=== PATIENT | male | born 1970 | race Caucasian/White ===

== ENCOUNTER 2016-09-12 21:21 | Emergency (ER) | payer SELFPAY ==
--- NOTE | 2016-09-12 22:37 | Emergency Department Report ---
ED Extremity Problem HPI - General Chief complaint: Extremity Injury, Upper Stated complaint: LT HAND SWELLING POSS SPIDER BITE Time Seen by Provider: 09/12/16 22:26 Source: patient Mode of arrival: Ambulatory Limitations: No Limitations - History of Present Illness Initial comments: PT states he was outside yesterday and he was stung by a cardona bee. PT states the bee stung his left index finger. PT states he looked but did not see stinger. PT reports L hand swelling and mild pain. PT States a few days ago, he did scrape his hand but states that has healed. PT states his TD vaccine is UTD. MD Complaint: extremity swelling -: Sudden, days(s) Location: left, upper extremity (hand) History of Same: No Quality: other (pt states it is "a little pain") Consistency: constant Improves with: nothing Worsens with: nothing Associated Symptoms: rash. denies: shortness of breath, fever, myalgias - Related Data Previous Rx's Medication Instructions Recorded Last Taken Type Cephalexin [Keflex] 500 mg PO Q6HR #28 capsule 09/12/16 Unknown Rx Ibuprofen [Motrin] 600 mg PO Q8H PRN #15 tablet 09/12/16 Unknown Rx methylPREDNISolone [Medrol] 4 mg PO DAILY #1 tab.ds.pk 09/12/16 Unknown Rx Allergies Allergy/AdvReac Type Severity Reaction Status Date / Time No Known Allergies Allergy Unverified 09/12/16 21:45 ED Review of Systems ROS: Stated complaint: LT HAND SWELLING POSS SPIDER BITE Other details as noted in HPI Comment: All other systems reviewed and negative Constitutional: denies: chills, fever, malaise ENT: throat pain Respiratory: denies: cough, shortness of breath, SOB with exertion, SOB at rest Gastrointestinal: denies: abdominal pain, nausea, vomiting Musculoskeletal: as per HPI Skin: rash, change in color (erythema ) ED Past Medical Hx - Past Medical History Previous Medical History?: No - Social History Smoking Status: Never Smoker Substance Use Type: None - Medications Home Medications: Home Medications Medication Instructions Recorded Confirmed Last Taken Type Cephalexin [Keflex] 500 mg PO Q6HR #28 capsule 09/12/16 Unknown Rx Ibuprofen [Motrin] 600 mg PO Q8H PRN #15 tablet 09/12/16 Unknown Rx methylPREDNISolone [Medrol] 4 mg PO DAILY #1 tab.ds.pk 09/12/16 Unknown Rx ED Physical Exam - General Limitations: No Limitations General appearance: alert, in no apparent distress - Head Head exam: Present: atraumatic, normocephalic, normal inspection - Eye Eye exam: Present: normal appearance. Absent: conjunctival injection - ENT ENT exam: Present: normal exam, normal orophraynx, normal external ear exam - Neck Neck exam: Present: normal inspection, full ROM - Respiratory Respiratory exam: Present: normal lung sounds bilaterally. Absent: respiratory distress, chest wall tenderness - Cardiovascular Cardiovascular Exam: Present: regular rate, normal rhythm - Extremities Exam Extremities exam: Present: full ROM, normal capillary refill. Absent: tenderness - Expanded Upper Extremity Exam Left Shoulder Exam: Present: normal inspection, full ROM. Absent: tenderness Upper Arm exam: Present: erythema Elbow exam: Present: full ROM, erythema. Absent: tenderness, swelling Forearm Wrist exam: Present: swelling, erythema Hand Wrist exam: Present: full ROM, swelling, erythema, other (pt has linear scab to L hand- pt states that is from 4 days ago. no puncture wound or fb at site of insect bite). Absent: tenderness Vascular: Present: normal capillary refill. Absent: vascular compromise - Back Exam Back exam: Present: normal inspection, full ROM. Absent: tenderness, CVA tenderness (R), CVA tenderness (L) - Neurological Exam Neurological exam: Present: alert, oriented X3, normal gait - Psychiatric Psychiatric exam: Present: normal affect, normal mood - Skin Skin exam: Present: warm, dry, intact, erythema (from L hand to upper arm ). Absent: normal color ED Course Vital Signs 09/12/16 09/12/16 21:42 23:55 Temperature 98.6 F Pulse Rate 63 68 Respiratory 18 18 Rate Blood Pressure 124/83 Blood Pressure 137/84 [Left] O2 Sat by Pulse 99 98 Oximetry - Reevaluation(s) Reevaluation #1: 09/12/16 22:47 PT aware of plan of care, no questions at this time Reevaluation #2: 09/12/16 23:09 PT aware of lab results. PT aware of plan of care. Edge's or erythema marked. PT given strict return precautions. PT has no questions at this time. - Pulse Oximetry Interpretation Digit-Finger Initial Pulse Oximetry Readin Actions Taken: none ED Medical Decision Making - Lab Data Result diagrams: 09/12/16 22:42 Lab Results 09/12/16 Range/Units 22:42 WBC 9.8 (4.5-11.0) K/mm3 RBC 4.44 (3.65-5.03) M/mm3 Hgb 13.8 (11.8-15.2) gm/dl Hct 41.1 (35.5-45.6) % MCV 93 (84-94) fl MCH 31 (28-32) pg MCHC 34 (32-34) % RDW 13.4 (13.2-15.2) % Plt Count 233 (140-440) K/mm3 Lymph % (Auto) 19.4 (13.4-35.0) % [place] % (Auto) 10.5 H (0.0-7.3) % Eos % (Auto) 3.1 (0.0-4.3) % Baso % (Auto) 0.2 (0.0-1.8) % Lymph # 1.9 (1.2-5.4) K/mm3 [place] # 1.0 H (0.0-0.8) K/mm3 Eos # 0.3 (0.0-0.4) K/mm3 Baso # 0.0 (0.0-0.1) K/mm3 Seg Neutrophils % 66.8 (40.0-70.0) % Seg Neutrophils # 6.5 (1.8-7.7) K/mm3 - Differential Diagnosis reaction to insect bite, cellulitis Critical Care Time: No Critical care attestation.: If time is entered above; I have spent that time in minutes in the direct care of this critically ill patient, excluding procedure time. ED Disposition Clinical Impression: Reaction to insect bite Disposition: DC-01 TO HOME OR SELFCARE Is pt being admited?: No Does the pt Need Aspirin: No Condition: Stable Instructions: Cellulitis (ED), Insect Bite or Sting (ED) Additional Instructions: Return in 2 days for recheck Return sooner if swelling increase, redness increases, you develop fevers or chills or you have concerns Prescriptions: Cephalexin [Keflex] 500 mg PO Q6HR #28 capsule Ibuprofen [Motrin] 600 mg PO Q8H PRN #15 tablet PRN Reason: Pain methylPREDNISolone [Medrol] 4 mg PO DAILY #1 tab.ds.pk Referrals: PRIMARY CARE, [Primary Care Provider] - 3-5 Days EMILY TREJO MD [Staff Physician] - 3-5 Days [facility] [Outside] - 3-5 Days Forms: Work/School Release Form(ED) Time of Disposition: 23:12
[2016-09-12] MEDS ORDERED: XYLOCAINE 1% MPF 5 mL INFILTRATI ONE (22:41)
[2016-09-12] MEDS ORDERED: ROCEPHIN IM ONE (22:41)
[2016-09-12 22:59] LABS: Basophils % (Auto) 0.2 % (0.0-1.8); Eosinophils % (Auto) 3.1 % (0.0-4.3); Hematocrit 41.1 % (35.5-45.6); Hemoglobin 13.8 gm/dl (11.8-15.2); Mean Corpuscular HGB Conc 34 % (32-34); Mean Corpuscular Hemoglobin 31 pg (28-32); Mean Corpuscular Volume 93 fl (84-94); Platelet Count 233 K/mm3 (140-440); Red Blood Count 4.44 M/mm3 (3.65-5.03); Red Cell Distribution Width 13.4 % (13.2-15.2); White Blood Count 9.8 K/mm3 (4.5-11.0)
[2016-09-13 00:05] VITALS: BP 137/84
== END 2016-09-13 00:03 | disposition home or self-care (01) ==
LOC: ED 21:21
DX: M79.642 Pain in left hand (principal); M79.89 Other specified soft tissue disorders; R21 Rash and other nonspecific skin eruption
CPT/HCPCS: 36415; 85025; 96372; 99283; J0696; J2930

== ENCOUNTER 2016-09-15 16:26 | Emergency (ER) | payer SELFPAY ==
--- NOTE | 2016-09-15 19:32 | Emergency Department Report ---
ED Recheck HPI - General Chief Complaint: Recheck/Abnormal Lab/Rx Stated Complaint: WOUND CHECK Time Seen by Provider: 09/15/16 19:25 Source: patient Mode of arrival: Ambulatory Limitations: No Limitations - History of Present Illness Initial Comments: patient here for recheck of insect bite and cellulitis to his left forearm. Patient was here on 09/15/2016 and treated for insect bite and cellulitis. He is discharged home with prescription for Keflex and Motrin and prednisone which he said he has been taken. Since that that infection is better. He denies any pain. Has any fever or chills. Denies any difficulty opening and closing hands. Denies any fever or chills or numbness or tingling to extremities. MD Complaint: wound re-check Onset/Timin -: days(s) Initial Visit For: cellulitis, animal bite Returns Today for: wound recheck, cellulitis follow-up Symptoms Since Prior Visit: no new symptoms, improved Context: planned re-check Associated Symptoms: none Treatments Prior to Arrival: Given Antibiotics on, Given Pain Meds on - Related Data Previous Rx's Medication Instructions Recorded Last Taken Type Cephalexin [Keflex] 500 mg PO Q6HR #28 capsule 09/12/16 Unknown Rx Ibuprofen [Motrin] 600 mg PO Q8H PRN #15 tablet 09/12/16 Unknown Rx methylPREDNISolone [Medrol] 4 mg PO DAILY #1 tab.ds.pk 09/12/16 Unknown Rx Allergies Allergy/AdvReac Type Severity Reaction Status Date / Time No Known Allergies Allergy Verified 09/15/16 17:04 ED Review of Systems ROS: Stated complaint: WOUND CHECK Other details as noted in HPI Comment: All other systems reviewed and negative Constitutional: denies: chills, fever Respiratory: no symptoms reported Cardiovascular: denies: chest pain, palpitations, edema, syncope Gastrointestinal: denies: nausea, vomiting Musculoskeletal: denies: back pain, joint swelling, arthralgia, myalgia Skin: denies: rash, pruritus Neurological: denies: headache, weakness ED Past Medical Hx - Past Medical History Previous Medical History?: No - Surgical History Past Surgical History?: No - Family History Family history: no significant - Social History Smoking Status: Never Smoker Substance Use Type: None - Medications Home Medications: Home Medications Medication Instructions Recorded Confirmed Last Taken Type Cephalexin [Keflex] 500 mg PO Q6HR #28 capsule 09/12/16 Unknown Rx Ibuprofen [Motrin] 600 mg PO Q8H PRN #15 tablet 09/12/16 Unknown Rx methylPREDNISolone [Medrol] 4 mg PO DAILY #1 tab.ds.pk 09/12/16 Unknown Rx ED Physical Exam - General Limitations: No Limitations General appearance: alert, in no apparent distress - Head Head exam: Present: atraumatic, normocephalic, normal inspection - Eye Eye exam: Present: normal appearance, PERRL, EOMI. Absent: periorbital swelling , periorbital tenderness Pupils: Present: normal accommodation - ENT ENT exam: Present: normal exam, normal orophraynx, mucous membranes moist - Neck Neck exam: Present: normal inspection, full ROM. Absent: tenderness, meningismus, lymphadenopathy - Respiratory Respiratory exam: Present: normal lung sounds bilaterally. Absent: respiratory distress, chest wall tenderness - Cardiovascular Cardiovascular Exam: Present: regular rate, normal rhythm, normal heart sounds - GI/Abdominal GI/Abdominal exam: Present: soft, normal bowel sounds. Absent: distended, tenderness, guarding, rebound, rigid - Extremities Exam Extremities exam: Present: normal inspection, full ROM, normal capillary refill. Absent: tenderness, pedal edema, joint swelling, calf tenderness - Back Exam Back exam: Present: normal inspection, full ROM - Neurological Exam Neurological exam: Present: alert, oriented X3, normal gait, reflexes normal. Absent: motor sensory deficit - Psychiatric Psychiatric exam: Present: normal affect, normal mood - Skin Skin exam: Present: warm, dry, intact, normal color. Absent: rash ED Course Vital Signs 09/15/16 17:01 Temperature 98.5 F Pulse Rate 61 Respiratory 17 Rate Blood Pressure 117/69 O2 Sat by Pulse 96 Oximetry - Reevaluation(s) Reevaluation #1: 09/15/16 19:37 Stable and remain on antibiotics. ED Recheck MDM - Medical Decision Making MDM: Assessment/plan ED course: Here for cellulitis and insect bites rechecked his left forearm. Chin is better and he still on Keflex. Cellulitis has resolved and patient said that he is feeling better and denies any pain. He has no signs of tenosynovitis and has +2 pulses ulnar radial. Condition instructed to follow- up with his primary care physician in 2 days. Laboratory/diagnostics: Need for any labs or diagnostic studies. Diagnosis: This was insect bite with cellulitis to left forearm ,Encounter for cellulitis recheck wound recheck Med: continue to take Keflex as previously ordered Patient discharged home in stable condition and instructed to continue with his Keflex. He voiced understanding of diagnosis and treatment plan. Critical care attestation.: If time is entered above; I have spent that time in minutes in the direct care of this critically ill patient, excluding procedure time. ED Disposition Clinical Impression: Encounter for wound re-check Disposition: - TO HOME OR SELFCARE Is pt being admited?: No Does the pt Need Aspirin: No Condition: Stable Instructions: Cellulitis (ED) Additional Instructions: Follow-up with a PCP in Continue to take Keflex until complete Referrals: PRIMARY CARE [Primary Care Provider] - 09/17/16 Forms: Work/School Release Form(ED)
[2016-09-15 20:03] VITALS: BP 127/77
== END 2016-09-15 20:01 | disposition home or self-care (01) ==
LOC: ED 16:26
DX: Z48.00 Encounter for change or removal of nonsurgical wound dressing (principal)